=== PATIENT | female | born 1980 | race Caucasian/White ===

== ENCOUNTER 2017-03-18 18:12 | Emergency (ER) | payer SELFPAY ==
[~2017-03-18] VITALS: Ht 167.6 cm; Wt 65.0 kg
[2017-03-18 18:48] VITALS: Ht 167.6 cm; Wt 65.0 kg
[2017-03-19] MEDS ORDERED: IBUP-1542 PO (05:36)
[2017-03-19] MEDS ORDERED: SULF1TAB31 PO (05:36)
[2017-03-19] MEDS ORDERED: OMEP40CA6 PO (05:39)
== END 2017-03-18 21:00 | disposition left against medical advice (07) ==
LOC: FTE 18:12
DX: Z53.21 Procedure and treatment not carried out due to patient leaving prior to being seen by health care provider (principal)

== ENCOUNTER 2017-03-19 00:28 | Emergency (ER) | payer MEDICAID ==
[~2017-03-19] VITALS: Wt 65.5 kg
--- NOTE | 2017-03-19 04:11 | ERA ---
ER Documentation Chief Complaint Date/Time DATE: 03/19/17 TIME: 04:11 Chief Complaint abdominal pain x 1week HPI The patient is a 36-year-old female, presenting to the ER because of diffuse abdominal pain intermittently for 1 week, radiating to the back. She denies similar symptoms previously, denies fever, chills, neck pain, chest pain, nausea , vomiting, dysuria, diarrhea, constipation. She does not smokes and drinks . She had an about 2 months ago Past medical history: Asthma Past surgical history: 2 ROS All systems reviewed and are negative except as per history of present illness. Allergies Allergies: Coded Allergies: No Known Drug Allergies (Verified Allergy, Unknown, 03/18/17) Physical Exam Vitals Vital Signs Date Time Temp Pulse Resp B/P Pulse Ox O2 Delivery O2 Flow Rate FiO2 03/19/17 05:29 71 18 111/78 100 Room Air 03/19/17 00:33 98.2 98 20 142/82 100 Physical Exam Const: No acute distress. Head: Atraumatic. Eyes: Normal Conjunctiva. ENT: Normal External Ears, Nose and Mouth. Neck: Full range of motion. No meningismus. Resp: Clear to auscultation bilaterally. Cardio: Regular rate and rhythm, no murmurs. Abd: Soft, non distended, normal bowel sounds, vague and diffuse abdominal tenderness, no rigidity, rebound, CVA tenderness Skin: No petechiae or rashes. Back: No midline or flank tenderness. Ext: No cyanosis, or edema. Neur: Awake and alert. No focal deficit Psych: Normal Mood and Affect. Result Diagram: 03/19/17 0437 03/19/17 0437 Results 24 hrs Laboratory Tests Test 03/19/17 04:37 03/19/17 05:20 White Blood Count 6.010^3/ul Red Blood Count 4.1610^6/ul Hemoglobin 8.9g/dl Hematocrit 30.9% Mean Corpuscular Volume 74.3fl Mean Corpuscular Hemoglobin 21.4pg Mean Corpuscular Hemoglobin Concent 28.8g/dl Red Cell Distribution Width 17.2% Platelet Count 65884^3/UL Mean Platelet Volume 9.1fl Neutrophils % 44.8% Lymphocytes % 41.3% Monocytes % 9.5% Eosinophils % 4.0% Basophils % 0.2% Nucleated Red Blood Cells % 0.0/100WBC Neutrophils # 2.710^3/ul Lymphocytes # 2.510^3/ul Monocytes # 0.610^3/ul Eosinophils # 0.210^3/ul Basophils # 0.010^3/ul Nucleated Red Blood Cells # 0.010^3/ul Sodium Level 140mmol/L Potassium Level 3.7mmol/L Chloride Level 110mmol/L Carbon Dioxide Level 25mmol/L Anion Gap 9 Blood Urea Nitrogen 7mg/dl Creatinine 0.52mg/dl Glucose Level 105mg/dl Calcium Level 9.3mg/dl Total Bilirubin 0.2mg/dl Direct Bilirubin 0.00mg/dl Indirect Bilirubin 0.2mg/dl Aspartate Amino Transf (AST/SGOT) 36IU/L Alanine Aminotransferase (ALT/SGPT) 39IU/L Alkaline Phosphatase 106IU/L Total Protein 7.7g/dl Albumin 4.1g/dl Globulin 3.60g/dl Albumin/Globulin Ratio 1.13 Lipase 87U/L Bedside Urine pH (LAB) 6.0 Bedside Urine Protein (LAB) Negative Bedside Urine Glucose (UA) Negative Bedside Urine Ketones (LAB) Negative Bedside Urine Blood Negative Bedside Urine Nitrite (LAB) Positive Bedside Urine Leukocyte Esterase (L Trace Procedures/MDM MEDICAL MAKING DECISION: The patient is a 36-year-old female, presenting with acute abdominal pain, most likely due to acute cystitis. The differential diagnoses considered include but are not limited to cholelithiasis, cholecystitis, cystitis, pancreatitis, hepatitis, gastritis, peptic ulcer disease, gastric ulcer, appendicitis, diverticulitis, cholangitis, choledocholithiasis, partial small bowel obstruction. Departure Diagnosis: Primary Impression: UTI (urinary tract infection) Additional Impression: Anemia Condition: Good Comments If the abdominal and pelvic CT is negative, she can be discharged She was discharged with Bactrim DS and Motrin I discussed the findings with the patient. I advised the patient to follow-up with the primary physician in about 1-2 days, sooner if needed and return if any concern. The patient's blood pressure was elevated (>120/80) but appears stable without evidence of hypertension emergency or urgency. The patient was counseled about the risks of hypertension and urged to pursue outpatient monitoring and therapy within a week with their primary care physician. SHU MALLOY MD Mar 19, 2017 04:11
[2017-03-19 04:51] LABS: ADD SCAN DIFF NO
[2017-03-19 04:53] LABS: ABNORMAL IP MESSAGE 1; BASOPHILS % 0.2 % (0.0-2.0); EOSINOPHILS # 0.2 10^3/ul (0.0-0.5); HEMATOCRIT 30.9 % (37.0-47.0); HEMOGLOBIN 8.9 g/dl (12.0-16.0); LYMPHOCYTES # 2.5 10^3/ul (0.8-2.9); LYMPHOCYTES % 41.3 % (15.0-51.0); MEAN CORPUSCULAR HEMOGLOBIN 21.4 pg (29.0-33.0); MEAN CORPUSCULAR HGB CONC 28.8 g/dl (32.0-37.0); MEAN CORPUSCULAR VOLUME 74.3 fl (82.0-101.0); MEAN PLATELET VOLUME 9.1 fl (7.4-10.4); MONOCYTE # 0.6 10^3/ul (0.3-0.9); MONOCYTES % 9.5 % (0.0-11.0); NEUTROPHIL # 2.7 10^3/ul (1.6-7.5); NEUTROPHILS % 44.8 % (39.0-77.0); PLATELET COUNT 376 10^3/UL (140-415); RED BLOOD COUNT 4.16 10^6/ul (4.20-5.40); RED CELL DISTRIBUTION WIDTH 17.2 % (11.5-14.5)
[2017-03-19 05:07] LABS: ALBUMIN 4.1 g/dl (3.3-4.9); ALBUMIN/GLOBULIN RATIO 1.13; BILIRUBIN,INDIRECT 0.2 mg/dl (0-1.1); BILIRUBIN,TOTAL 0.2 mg/dl (0.2-1.3); CALCIUM 9.3 mg/dl (8.4-10.2); CREATININE 0.52 mg/dl (0.44-1.00); POTASSIUM 3.7 mmol/L (3.5-5.1); TOTAL PROTEIN 7.7 g/dl (6.1-8.1)
[2017-03-19 05:20] LABS: URINE BLOOD (Dip) POC Negative (NEGATIVE)
[2017-03-19] MEDS ORDERED: SULF1TAB31 PO (05:36)
[2017-03-19] MEDS ORDERED: IBUP-1542 PO (05:36)
[2017-03-19] MEDS ORDERED: KETOROLAC 30 MG INJ IV STA (05:37)
--- NOTE | 2017-03-19 05:37 | RADRPT ---
PROCEDURE: CT ABDOMEN/PELVIS WITHOUT CONTRAST CLINICAL INDICATION: 36-year-old female with abdominal pain. TECHNIQUE: The study was performed utilizing a [employer] Photo[employer] VCT 64-slice CT scanner. Direct axia l sections were obtained through the abdomen and pelvis without the use of intravenous contrast mate rial. Sagittal and coronal reformations were obtained. The the patient moved on the initial scan and therefore was rescanned. One or more of the following dose reduction techniques were utilized: auto mated exposure control, adjustment of the mA and/or kV according to patient's size or use of iterati ve reconstruction technique. The images were reviewed on a PACS workstation. CTD/vol = 15.4 mGy; Total Exam DLP = 875 point a mGy-cm. COMPARISON: None. FINDINGS: There is trace bibasilar subsegmental atelectasis. There is no evidence for significant pleural eff usion. The liver has a normal size and contour without focal areas of abnormal density. No intrahep atic nor extrahepatic biliary ductal dilatation is seen. The gallbladder demonstrates no wall thicke bettie nor pericholecystic fluid. No biliary stones are evident. The pancreas is without areas of abno rmal attenuation. The spleen is identified and has a normal size without abnormal density. The adre nal glands are unremarkable. The kidneys are without abnormal density. No hydroureteronephrosis nor nephroureterolithiasis is evident. The urinary bladder contains urine. There appears to be diffuse g astric thickening. There is retained stool within the colon without gross bowel obstruction. The a ppendix is visualized and is without abnormal thickening or surrounding inflammatory reaction. The u terus is anteflexed. There is no significant free fluid. The aortoiliac vessels are without aneurysmal dilatation. The osseous structures are intact. IMPRESSION: 1. Diffuse gastric wall thickening this may be due to underdistension however gastritis could have this appearance. Clinical correlation is necessary. 2. No CT evidence for obstructive uropathy or renal calculi. 3. Retained stool within the colon without obstruction. 4. No CT evidence for appendicitis. .Patricio Vazquez MD, MD Date Time Electronically viewed and signed by .Patricio Vazquez MD, on 03/19/2017 05:36 .Camila/
[2017-03-19] MEDS ORDERED: OMEP40CA6 PO (05:39)
[2017-03-19 06:03] VITALS: BP 128/88; PULSE 84; RESP 18
== END 2017-03-19 06:03 | disposition home or self-care (01) ==
LOC: E/R 00:28
DX: N39.0 Urinary tract infection, site not specified (principal); K29.00 Acute gastritis without bleeding; D64.9 Anemia, unspecified; J45.909 Unspecified asthma, uncomplicated
CPT/HCPCS: 74176; 80053; 81003; 83690; 85025; J1885; 36415; 96374